=== PATIENT | male | born 1965 | race Caucasian/White ===

== ENCOUNTER 2020-08-10 22:23 | Emergency (ER) | payer OTHER, SELFPAY ==
--- NOTE | ~2020-08-10 | CT_ITS ---
EXAMINATION: CTA chest PE protocol DATE: 08/11/2020 01:01 INDICATION: Dyspnea. Covid. TECHNIQUE: Computed tomography (CT) of the chest was performed with 100 cc Omnipaque 350 intravenous contrast. The dose-length product was 613.08 mGy-cm. Automated exposure control and iterative reconst ruction technique were employed. COMPARISON: None FINDINGS: Suboptimal enhancement of pulmonary arteries. No large central pulmonary embolism. Trace pl eural effusions. No significant pericardial effusion. Heart size is normal. Mildly prominent mediasti nal lymph nodes, largest in the AP window measuring 8 mm short axis, likely reactive. Scattered irregular groundglass densities throughout both lungs, compatible with pneumonia. No endobr onchial lesions. Upper abdomen is unremarkable. No acute osseous abnormality. IMPRESSION: 1. Extensive patchy bilateral groundglass consolidation, compatible with pneumonia. 2: Suboptimal enhancement of the pulmonary arteries. No large central pulmonary embolism. 3: Mild mediastinal lymphadenopathy, likely reactive. 4: Trace pleural effusions. Reviewed, dictated and finalized at location A. [facility] [employer] IMPRESSION: 1. Extensive patchy bilateral groundglass consolidation, compatible with pneumo shai. 2: Suboptimal enhancement of the pulmonary arteries. No large central pulmonary embolism. 3: Mild mediastinal lymphadenopathy, likely reactive. 4: Trace pleural effusions.
--- NOTE | 2020-08-10 22:24 | ECG_ITS ---
Measurements Intervals [place] Rate: 86 P: 38 [place]: 136 QRS: 12 QRSD: 113 T: 11 QT: 366 QTc: 439 Interpretive Statements SINUS RHYTHM INTRAVENTRICULAR CONDUCTION DELAY BORDERLINE T WAVE ABNORMALITY- INFERIOR LEADS BORDERLINE ECG Electronically Signed On 08-11-2020 7:27:12 [employer] by Jersey Harris D.O.
[2020-08-10 22:26] VITALS: BP 136/80; PULSE 98; RESP 17; TEMP 37; O2SAT 98
[2020-08-10 22:38] LABS: Basophils Percent Auto 0.4 % (0.2-1.2); Eosinophils Absolute Auto 0.1 K/mm3 (0-0.3); Eosinophils Percent Auto 1.5 % (0-4.4); Hemoglobin 17.3 g/dL (14.0-18.0); Immature Granulocyte Absolute 0.02 K/mm3 (0.00-0.031); Immature Granulocyte Percent A 0.4 % (0-0.5); Immature Platelet Fraction Pct 3.2 % (0.9-11.2); Lymphocytes Absolute Auto 1.93 K/mm3 (0.9-3.2); Lymphocytes Percent Auto 36.8 % (18.3-44.2); Mean Corpuscular HGB Conc 32.6 g/dl (32-36); Mean Corpuscular Hemoglobin 29.3 pg (26-34); Mean Corpuscular Volume 89.8 fl (80-100); Mean Platelet Volume 9.7 fl (7.4-10.4); Monocytes Absolute Auto 0.8 K/mm3 (0.1-0.6); Monocytes Percent Auto 15.6 % (2.6-8.5); Neutrophils Absolute Auto 2.4 K/mm3 (1.3-6.7); Neutrophils Percent Auto 45.3 % (45.5-73.1); Platelet Count Result 164 k/mm3 (150-375); Red Cell Distribution Width 12.6 % (11.5-14.5); White Blood Count 5.2 K/mm3 (4.5-10.0)
[2020-08-10 22:47] LABS: Anion Gap 7 mmol/L (8-16); Blood Urea Nitrogen 22 mg/dL (9-20); Calcium 8.1 mg/dL (8.4-10.2); Carbon Dioxide 33 mmol/L (22-30); Chloride 100 mmol/L (98-107); Estimated CRCL calculation 72 ml/min; Estimated Glomerular Filt Rate > 60; Glucose 123 mg/dL (75-110); Potassium 3.8 mmol/L (3.4-5.0); Sodium 140 mmol/L (137-145)
[2020-08-10 23:28] LABS: D Dimer 1.04 ug/mL (<0.48)
[2020-08-10 23:42] LABS: Troponin I < 0.012 ng/mL (0.000-0.034)
--- NOTE | 2020-08-10 23:56 | ED.GENADULT ---
HPI - General Adult General Chief complaint: Shortness of Breath/Dyspnea Stated complaint: sob Time Seen by Provider: 08/10/20 23:38 Source: RN notes reviewed History of Present Illness HPI narrative: Patient presents to emergency department from home for chest tightness. Patient states he was diagnosed with COVID-19 7 days ago. He states for the past 2 days he has been having midsternal chest pain described as a burning sensation he states is improved when he relaxes he states that with this he has had some mild shortness of breath he also notes occasional phlegm that has some blood-tinged to it he denies any fevers or chills abdominal pain nausea vomiting or any other symptoms of concern Related Data Home Medications Medication Instructions Recorded Confirmed atorvastatin 20 mg tablet 20 mg PO DAILY 07/12/20 lisinopril 5 mg tablet 5 mg PO DAILY 07/12/20 metoprolol succinate PO 08/10/20 08/10/20 Allergies Allergy/AdvReac Type Severity Reaction Status Date / Time No Known Allergies Allergy Verified 08/10/20 22:29 Review of Systems Review of Systems: Narrative: Gen.: Denies fevers or chills ENT: Denies congestion Respiratory: See HPI CV: See HPI GI: Denies abdominal pain nausea, emesis or diarrhea Musculoskeletal: Denies back pain or muscle pain Neuro: Denies numbness, tingling, weakness or focal weakness Skin: Denies rash Except as documented, all other systems reviewed and negative [facility] Past Medical History Medical History (Updated 08/11/20 @ 02:33 by Fermin Anderson DO) Asymmetrical hearing loss of right ear Hypertension Social History Social History Smokeless tobacco user: chewing tobacco Second hand tobacco smoke exposure: No Alcohol intake: current Substance use: never Substance use type: does not use Gender identity (if verbalized by the patient): Male Exam Narrative: Exam Narrative: APPEARANCE: No acute distress, nontoxic, resting in bed EYES: EOMI HEENT: Normocephalic, atraumatic, masked face RESPIRATORY: No respiratory distress Clear to auscultation bilaterally with no rhonchi wheezing or rales. CARDIOVASCULAR: Regular rate and rhythm without murmurs rubs or gallops. ABDOMINAL: Soft, nontender, nondistended, no rebound or guarding MUSCULOSKELETAl: Moves all extremities. No clubbing, cyanosis or edema. NEURO: Awake and alert. Following commands, speech normal, no focal deficits SKIN:: Warm, dry. No rashes lesions or abrasions PSYCHIATRIC: Normal affect/mood, Course Course Emergency Course: Patient will get up and ambulate in the emergency department with oxygen saturation seen in the mid 90s Discussed with patient results of workup and diagnosis. Discussed need for follow-up with primary care, proper use of medication, and reasons to return to the emergency department. Patient understands and agrees to current treatment plan Vital Signs Vital signs: Vital Signs Temperature 98.6 F 08/10/20 22:26 Pulse Rate 98 08/10/20 22:26 Respiratory Rate 17 08/10/20 22:26 Blood Pressure 136/80 08/10/20 22:26 Pulse Oximetry 98 08/10/20 22:26 Temperature 98.6 F 08/10/20 22:26 Pulse Rate 85 08/11/20 02:05 Respiratory Rate 18 08/11/20 02:05 Blood Pressure 136/80 08/10/20 22:26 Pulse Oximetry 98 08/10/20 22:26 Medical Decision Making MDM Narrative Medical decision making narrative: Patient's EKGs and labs are without significant high risk changes. Cardiac risk factors reviewed. Patient is felt likely low risk for ACS and reasonable for further risk stratification testing as an outpatient. Patient does have COVID-19. CT of the chest does show bilateral pneumonia consistent with Covid no evidence of PE or aneurysm. Patient is able to get up and ambulate in the emergency department with oxygen saturations in the mid 90s. Patient is felt to be a reasonable candidate for continued evaluation as an outp
--- NOTE | 2020-08-11 00:46 | PC.NURSE ---
Patient to CT
[2020-08-11] MEDS: ALBUTEROL SULFATE (*SP) AEROSOL 1 PUFF 2 PUFF INHALATION (02:01)
[2020-08-11 02:05] VITALS: PULSE 85; RESP 18
[2020-08-11 02:31] LABS: Troponin I < 0.012 ng/mL (0.000-0.034)
[2020-08-11] MEDS: methylPREDNISolone SOD SUCC 125 MG VIAL IV PUSH (03:05)
[2020-08-11 03:11] VITALS: BP 118/70; PULSE 100; RESP 20; O2SAT 95
== END 2020-08-11 03:13 | disposition home or self-care (01) ==
PROVIDERS: Emergency Provider Emergency Medicine; PCP Internal Medicine
DX: U07.1 COVID-19 (principal); J12.82 Pneumonia due to coronavirus disease 2019; R07.89 Other chest pain; I10 Essential (primary) hypertension; F17.220 Nicotine dependence, chewing tobacco, uncomplicated; I45.9 Conduction disorder, unspecified; R94.31 Abnormal electrocardiogram [ECG] [EKG]
CPT/HCPCS: 36415; 71275; 80048; 84484; 85025; 85055; 85380; 93005; 94640; 96374; 99284; A9270; J2930; Q9967

== ENCOUNTER 2020-08-20 12:42 | Outpatient (CLI) | payer OTHER, SELFPAY | END 2020-08-20 12:43 | disposition home or self-care (01) | LOC: ANHAUDIO 12:43 | PROVIDERS: PCP Internal Medicine; Visit Provider Otolaryngology | DX: H90.71 Mixed conductive and sensorineural hearing loss, unilateral, right ear, with unrestricted hearing on the contralateral side (principal); H90.42 Sensorineural hearing loss, unilateral, left ear, with unrestricted hearing on the contralateral side | CPT/HCPCS: 92557; 92567 ==

== ENCOUNTER 2021-05-14 23:33 | Emergency (ER) | payer OTHER, SELFPAY ==
--- NOTE | ~2021-05-14 | XR_ITS ---
EXAMINATION: XR chest 1V portable EXAM DATE: 05/15/2021 01:45 INDICATION: Chest Pain/ Burning Feeling, Mid Sternal Area, No Cardiac Hx TECHNIQUE: Portable AP frontal chest x-ray was obtained. There is no prior study for comparison. FINDINGS: The lungs are clear. There are no pleural effusions. The cardiomediastinal silhouette is within normal limits. There is no pneumothorax suspected. The bones and soft tissues are unremarka ble. IMPRESSION: No acute cardiopulmonary findings. Reviewed, dictated and finalized at location A.
[2021-05-14 23:34] VITALS: BP 124/85; PULSE 82; RESP 20; TEMP 37.3; O2SAT 96; O2SAT 97
--- NOTE | 2021-05-14 23:34 | ECG_ITS ---
Measurements Intervals [place] Rate: 83 P: 27 [place]: 158 QRS: 19 QRSD: 111 T: 0 QT: 357 QTc: 421 Interpretive Statements SINUS RHYTHM INTRAVENTRICULAR CONDUCTION DELAY BORDERLINE T WAVE ABNORMALITY- INFERIOR LEADS BASELINE ARTIFACT- I, III, AVL, AVF BORDERLINE ECG Electronically Signed On 05-15-2021 7:09:03 CDT by Jersey Harris D.O.
--- NOTE | 2021-05-14 23:52 | PC.NURSE ---
pt took 324 aspirin prior to ED visit
[2021-05-15] VITALS (10 sets, daily range): BP systolic 126–141; BP diastolic 79–97; PULSE 64–88; RESP 14–24; O2SAT 92–96
[2021-05-15 00:15] LABS: Basophils Percent Auto 0.6 % (0.2-1.2); Eosinophils Absolute Auto 0.4 K/mm3 (0-0.3); Eosinophils Percent Auto 5.6 % (0-4.4); Hematocrit 45.7 % (42.0-52.0); Hemoglobin 15.4 g/dL (14.0-18.0); Immature Granulocyte Absolute 0.02 K/mm3 (0.00-0.031); Immature Granulocyte Percent A 0.3 % (0-0.5); Lymphocytes Absolute Auto 2.85 K/mm3 (0.9-3.2); Lymphocytes Percent Auto 41.7 % (18.3-44.2); Mean Corpuscular HGB Conc 33.7 g/dl (32-36); Mean Corpuscular Hemoglobin 30.1 pg (26-34); Mean Corpuscular Volume 89.4 fl (80-100); Mean Platelet Volume 10.2 fl (7.4-10.4); Monocytes Absolute Auto 0.6 K/mm3 (0.1-0.6); Monocytes Percent Auto 8.3 % (2.6-8.5); Neutrophils Percent Auto 43.5 % (45.5-73.1); Platelet Count Result 148 k/mm3 (150-375); Red Blood Count 5.11 M/mm3 (4.6-6.20); Red Cell Distribution Width 13.1 % (11.5-14.5); White Blood Count 6.8 K/mm3 (4.5-10.0)
[2021-05-15 00:18] LABS: INR 0.9; Prothrombin Time 12.4 Seconds (11.1-14.7)
[2021-05-15 00:19] LABS: Partial Thromboplastin Time 24.7 SECONDS (22.3-36.8)
[2021-05-15 00:26] LABS: Anion Gap 7 mmol/L (8-16); Blood Urea Nitrogen 29 mg/dL (9-20); Calcium 8.7 mg/dL (8.4-10.2); Carbon Dioxide 26 mmol/L (22-30); Chloride 108 mmol/L (98-107); Estimated CRCL calculation 96 ml/min; Estimated Glomerular Filt Rate > 60; Glucose 111 mg/dL (65-110); Potassium 3.8 mmol/L (3.4-5.0); Sodium 141 mmol/L (137-145)
[2021-05-15 00:40] LABS: Troponin I < 0.012 ng/mL (0.000-0.034)
[2021-05-15] MEDS: BELLADONNA ALK/PHENOB ELIX 10 ML, MAG HYDROX/ALUMINUM HYD/SIMETH 30 ML, LIDOCAINE HCL 2... PO (01:49)
[2021-05-15 01:53] LABS: D Dimer 0.29 ug/mL (<0.48)
--- NOTE | 2021-05-15 02:37 | ED.GENADULT ---
HPI - General Adult General Chief complaint: Chest Pain Stated complaint: CHEST PAIN Time Seen by Provider: 05/15/21 01:20 History of Present Illness HPI narrative: Patient is a 56-year-old gentleman who presents the emergency department with chief complaint of chest pain. Patient reports has been having intermittent discomfort in his chest since he got back from [place]. The patient states that he did not take a long road trip reports that he flew the patient reports that he has intermittent episodes that has a pressure-like sensation and a burning sensation in his chest. Patient states he has personally never had a history of cardiac disease and has had negative stress test in the past but does state that he has family history significant for cardiac disease. Patient reports that tonight he decided to come to the emergency department for evaluation. Related Data Home Medications Medication Instructions Recorded Confirmed atorvastatin 05/14/21 lisinopril 05/14/21 metoprolol succinate PO 05/14/21 Allergies Allergy/AdvReac Type Severity Reaction Status Date / Time No Known Allergies Allergy Verified 05/14/21 23:45 Review of Systems Review of Systems: A 10 system review of systems was completed on the patient and is negative except for what is stated in the HPI. Nursing and ancillary documentation was reviewed. [facility] Social History Social History Second hand tobacco smoke exposure: No Exam Narrative: GENERAL: Well-appearing, well-nourished, and in no acute distress. HEAD: Normocephalic, atraumatic. EYES: PERRLA and EOMI. ENT: Nares clear, no rhinorrhea or epistaxis. Mucous membranes moist. NECK: Supple. CHEST: Clear to auscultation. No respiratory distress. HEART: Regular rate and rhythm. No murmur heard. Normal peripheral pulses. ABDOMEN: Soft, nontender, nondistended, normal active bowel sounds. EXTREMITIES: Normal range of motion. No edema. SKIN: Warm, dry, no rash. NEURO: No focal deficits. Alert and oriented x3. PSYCH: Normal mood and affect. Course Course Emergency Course: EKG is a sinus rhythm rate of [address] elevation or ST depression Vital Signs Vital signs: Vital Signs Temperature 37.3 C 05/14/21 23:34 Pulse Rate 82 05/14/21 23:34 Respiratory Rate 20 05/14/21 23:34 Blood Pressure 124/85 05/14/21 23:34 Pulse Oximetry 96 05/14/21 23:34 Temperature 37.3 C 05/14/21 23:34 Pulse Rate 64 05/15/21 03:27 Respiratory Rate 21 H 05/15/21 03:27 Blood Pressure 135/79 05/15/21 03:27 Pulse Oximetry 95 05/15/21 03:27 Medical Decision Making Vital Signs Vital Signs: Vital Signs Temperature 37.3 C 05/14/21 23:34 Pulse Rate 82 05/14/21 23:34 Respiratory Rate 20 05/14/21 23:34 Blood Pressure 124/85 05/14/21 23:34 Pulse Oximetry 96 05/14/21 23:34 Temperature 37.3 C 05/14/21 23:34 Pulse Rate 64 05/15/21 03:27 Respiratory Rate 21 H 05/15/21 03:27 Blood Pressure 135/79 05/15/21 03:27 Pulse Oximetry 95 05/15/21 03:27 Lab Data Result diagrams: 05/14/21 23:48 05/14/21 23:48 Labs: Lab Results 05/14/21 05/14/21 05/14/21 Range/Units 23:48 23:48 23:48 WBC 6.8 (4.5-10.0) K/mm3 RBC 5.11 (4.6-6.20) M/mm3 Hgb 15.4 (14.0-18.0) g/dL Hct 45.7 (42.0-52.0) % MCV 89.4 (80-100) fl MCH 30.1 (26-34) pg MCHC 33.7 (32-36) g/dl RDW 13.1 (11.5-14.5) % Plt Count 148 L (150-375) k/mm3 MPV 10.2 (7.4-10.4) fl Immature Gran % (Auto) 0.3 (0-0.5) % Neut % (Auto) 43.5 L (45.5-73.1) % Lymph % (Auto) 41.7 (18.3-44.2) % [place] % (Auto) 8.3 (2.6-8.5) % Eos % (Auto) 5.6 H (0-4.4) % Baso % (Auto) 0.6 (0.2-1.2) % Lymph # (Auto) 2.85 (0.9-3.2) K/mm3 [place] # (Auto) 0.6 (0.1-0.6) K/mm3 Eos # (Auto) 0.4 H (0-0.3) K/mm3 Baso # (Auto) 0.0 (0.0-0.1) K/mm3 Abs Immat
[2021-05-15 03:36] LABS: Troponin I < 0.012 ng/mL (0.000-0.034)
== END 2021-05-15 03:48 | disposition home or self-care (01) ==
PROVIDERS: Emergency Provider Emergency Medicine; PCP Internal Medicine
DX: R07.89 Other chest pain (principal); I45.9 Conduction disorder, unspecified; R94.31 Abnormal electrocardiogram [ECG] [EKG]
CPT/HCPCS: 36415; 71045; 80048; 84484; 85025; 85380; 85610; 85730; 93005; 99284; A9270